=== PATIENT | female | born 1970 | race Caucasian/White ===

== ENCOUNTER 2016-07-04 08:22 | Day surgery (SDC) | payer BC, OTHER ==
[2016-07-04] MEDS ORDERED: FUROSEMIDE 20 MG TABLET (FP) PO SCH (09:00)
[2016-07-04 09:46] VITALS: BP 127/91; PULSE 80; TEMP 98.6
[2016-07-04 09:51] LABS: MCHC 28.1 g/dl (32.0-36.0); MEAN CELL VOLUME 56.8 fl (80-96); MEAN PLT VOLUME 9.3 fl (7.5-11.1); PLATELET COUNT 176 K/MM3 (134-434); RDW 21.6 % (11.6-15.6); WHITE BLOOD COUNT 7.8 K/mm3 (4.0-10.0)
[2016-07-04 10:13] LABS: MCH 15.9 pg (25.7-33.7)
[2016-07-04 13:14] LABS: ANISOCYTOSIS 3+; HYPOCHROMIA 3+; MICROCYTOSIS 4+; PLATELET ESTIMATE ADEQUATE (NORMAL); POLYCHROMASIA 1+; TEAR DROP CELLS 1+
[2016-07-04 20:52] LABS: MCHC 29.5 g/dl (32.0-36.0); MEAN CELL VOLUME 61.8 fl (80-96); MEAN PLT VOLUME 9.3 fl (7.5-11.1); PLATELET COUNT 206 K/MM3 (134-434); RDW 31.8 % (11.6-15.6); WHITE BLOOD COUNT 10.1 K/mm3 (4.0-10.0)
[2016-07-04 21:05] LABS: MCH 18.3 pg (25.7-33.7)
[2016-07-04 21:27] LABS: PLATELET ESTIMATE ADEQUATE (NORMAL)
== END 2016-07-04 21:40 | disposition home or self-care (01) ==
LOC: J7W 08:22 → JONCBLOOD 08:22
PROVIDERS: ATTEND Internal Medicine Hematology & Oncology
PROC: 30233N1 Transfusion of Nonautologous Red Blood Cells into Peripheral Vein, Percutaneous Approach (ICD-10-PCS; principal; 2016-07-04)
DX: D50.9 Iron deficiency anemia, unspecified (principal)
CPT/HCPCS: 36415; 36430; 85027; 86850; 86900; 86901; 86922; P9038; P9058

== ENCOUNTER 2016-11-16 07:22 | Day surgery (SDC) | payer BC, OTHER ==
[2016-11-16] MEDS ORDERED: IRON SUCROSE INJECTION 100 MG in SODIUM CHLORIDE 100 ML IVPB ONE (16:00)
[2016-11-16 17:13] VITALS: BP 129/76; PULSE 70; TEMP 98.2
== END 2016-11-16 17:10 | disposition home or self-care (01) ==
LOC: JONCNONCHE 07:22 → J7W 16:05 → JONCNONCHE 17:10
PROVIDERS: ATTEND Internal Medicine Hematology & Oncology
PROC: 3E033GC Introduction of Other Therapeutic Substance into Peripheral Vein, Percutaneous Approach (ICD-10-PCS; principal; 2016-11-16)
DX: D50.9 Iron deficiency anemia, unspecified (principal)
CPT/HCPCS: 96365; 96417; J1756

== ENCOUNTER 2016-12-06 07:30 | Day surgery (SDC) | payer BC, OTHER ==
[2016-12-06] MEDS ORDERED: IRON SUCROSE INJECTION 100 MG in SODIUM CHLORIDE 100 ML IVPB ONE (10:00)
[2016-12-06 16:24] VITALS: TEMP 98.7
[2016-12-06 17:03] VITALS: BP 106/73; PULSE 73
== END 2016-12-06 17:02 | disposition home or self-care (01) ==
LOC: JONCCHEMO 07:30 → J7W 16:06 → JONCCHEMO 17:02
PROVIDERS: ATTEND Internal Medicine Hematology & Oncology
PROC: 3E033GC Introduction of Other Therapeutic Substance into Peripheral Vein, Percutaneous Approach (ICD-10-PCS; principal; 2016-12-06)
DX: D50.9 Iron deficiency anemia, unspecified (principal)
CPT/HCPCS: 96365; J1756

== ENCOUNTER 2016-12-20 10:58 | Day surgery (SDC) | payer BC, OTHER ==
[2016-12-20] MEDS ORDERED: IRON SUCROSE INJECTION 100 MG in SODIUM CHLORIDE 100 ML IVPB ONE ×2 (11:30→16:15)
[2016-12-20 16:45] VITALS: TEMP 98.7
[2016-12-20 17:19] VITALS: BP 116/90; PULSE 70
== END 2016-12-20 17:21 | disposition home or self-care (01) ==
LOC: JONCNONCHE 10:58 → J7W 15:57 → JONCNONCHE 17:21
PROVIDERS: ATTEND Internal Medicine Hematology & Oncology
PROC: 3E033GC Introduction of Other Therapeutic Substance into Peripheral Vein, Percutaneous Approach (ICD-10-PCS; principal; 2016-12-20)
DX: D50.9 Iron deficiency anemia, unspecified (principal)
CPT/HCPCS: 96365; J1756

== ENCOUNTER 2017-01-31 07:20 | Day surgery (SDC) | payer BC, OTHER ==
[2017-01-31] MEDS ORDERED: IRON SUCROSE INJECTION 100 MG in SODIUM CHLORIDE 100 ML IVPB ONE (13:00)
[2017-01-31 18:13] VITALS: BP 119/73; PULSE 68; TEMP 98.6
== END 2017-01-31 18:14 | disposition home or self-care (01) ==
LOC: JONCNONCHE 07:20 → J7W 16:01 → JONCNONCHE 18:14
PROVIDERS: ATTEND Internal Medicine Hematology & Oncology
PROC: 3E033GC Introduction of Other Therapeutic Substance into Peripheral Vein, Percutaneous Approach (ICD-10-PCS; principal; 2017-01-31)
DX: D50.9 Iron deficiency anemia, unspecified (principal)
CPT/HCPCS: 96365; 96417; J1756

== ENCOUNTER 2017-02-07 07:48 | Day surgery (SDC) | payer BC, OTHER ==
[2017-02-07] MEDS ORDERED: IRON SUCROSE INJECTION 100 MG in SODIUM CHLORIDE 100 ML IVPB ONE (13:00)
[2017-02-07] MEDS ORDERED: IRON SUCROSE INJECTION 200 MG in SODIUM CHLORIDE 100 ML IVPB ONE (16:30)
[2017-02-07 16:36] VITALS: TEMP 97.5
[2017-02-07 17:17] VITALS: BP 113/77; PULSE 65
== END 2017-02-07 17:17 | disposition home or self-care (01) ==
LOC: JONCNONCHE 07:48 → J7W 16:35 → JONCNONCHE 17:17
PROVIDERS: ATTEND Internal Medicine Hematology & Oncology
PROC: 3E033GC Introduction of Other Therapeutic Substance into Peripheral Vein, Percutaneous Approach (ICD-10-PCS; principal; 2017-02-07)
DX: D50.9 Iron deficiency anemia, unspecified (principal); K90.9 Intestinal malabsorption, unspecified
CPT/HCPCS: 96365; 96417; J1756

== ENCOUNTER 2017-02-14 07:25 | Day surgery (SDC) | payer BC, OTHER ==
[2017-02-14] MEDS ORDERED: IRON SUCROSE INJECTION 200 MG in SODIUM CHLORIDE 100 ML IVPB ONE (13:00)
[2017-02-14 18:08] VITALS: TEMP 98
[2017-02-14 18:55] VITALS: BP 112/69; PULSE 68
== END 2017-02-14 19:41 | disposition home or self-care (01) ==
LOC: JONCNONCHE 07:25 → J7W 17:15 → JONCNONCHE 19:41
PROVIDERS: ATTEND Internal Medicine Hematology & Oncology
PROC: 3E033GC Introduction of Other Therapeutic Substance into Peripheral Vein, Percutaneous Approach (ICD-10-PCS; principal; 2017-02-14)
DX: D50.9 Iron deficiency anemia, unspecified (principal)
CPT/HCPCS: 96365; 96417; J1756

== ENCOUNTER 2017-03-07 07:26 | Day surgery (SDC) | payer BC, OTHER ==
[2017-03-07] MEDS ORDERED: IRON SUCROSE INJECTION 200 MG in SODIUM CHLORIDE 100 ML IVPB ONE (10:00)
[2017-03-07 17:12] VITALS: BP 104/72; PULSE 61; TEMP 98.1
== END 2017-03-07 16:55 | disposition home or self-care (01) ==
LOC: JONCNONCHE 07:26 → JONCCHEMO 07:26 → J7W 16:02 → JONCNONCHE 16:55
PROVIDERS: ATTEND Internal Medicine Hematology & Oncology
PROC: 3E033GC Introduction of Other Therapeutic Substance into Peripheral Vein, Percutaneous Approach (ICD-10-PCS; principal; 2017-03-07)
DX: D50.9 Iron deficiency anemia, unspecified (principal)
CPT/HCPCS: 96365; J1756

== ENCOUNTER 2017-03-21 07:43 | Day surgery (SDC) | payer BC, OTHER ==
[2017-03-21] MEDS ORDERED: IRON SUCROSE INJECTION 200 MG in SODIUM CHLORIDE 100 ML IVPB ONE (14:00)
[2017-03-21 19:13] VITALS: BP 113/73; PULSE 81; TEMP 97.5
== END 2017-03-21 18:30 | disposition home or self-care (01) ==
LOC: JONCNONCHE 07:43 → J7W 17:00 → JONCNONCHE 18:30
PROVIDERS: ATTEND Internal Medicine Hematology & Oncology
PROC: 3E033GC Introduction of Other Therapeutic Substance into Peripheral Vein, Percutaneous Approach (ICD-10-PCS; principal; 2017-03-21)
DX: D50.9 Iron deficiency anemia, unspecified (principal); K90.9 Intestinal malabsorption, unspecified
CPT/HCPCS: 96365; J1756

== ENCOUNTER 2017-04-11 07:08 | Day surgery (SDC) | payer BC, OTHER ==
[2017-04-11] MEDS ORDERED: IRON SUCROSE INJECTION 200 MG in SODIUM CHLORIDE 100 ML IVPB ONE (13:00)
[2017-04-11 18:21] VITALS: TEMP 97.6
[2017-04-11 18:23] VITALS: BP 103/69; PULSE 71
== END 2017-04-11 18:23 | disposition home or self-care (01) ==
LOC: JONCNONCHE 07:08 → J7W 17:22 → JONCNONCHE 18:23
PROVIDERS: ATTEND Internal Medicine Hematology & Oncology
PROC: 3E033GC Introduction of Other Therapeutic Substance into Peripheral Vein, Percutaneous Approach (ICD-10-PCS; principal; 2017-04-11)
DX: D50.9 Iron deficiency anemia, unspecified (principal); K90.9 Intestinal malabsorption, unspecified
CPT/HCPCS: 96365; J1756

== ENCOUNTER 2017-04-25 07:25 | Day surgery (SDC) | payer BC, OTHER ==
[2017-04-25] MEDS ORDERED: IRON SUCROSE INJECTION 200 MG in SODIUM CHLORIDE 100 ML IVPB ONE (10:00)
[2017-04-25 18:37] VITALS: BP 112/69; PULSE 67; TEMP 98
== END 2017-04-25 18:00 | disposition home or self-care (01) ==
LOC: JONCNONCHE 07:25 → J7W 16:55 → JONCNONCHE 18:00
PROVIDERS: ATTEND Internal Medicine Hematology & Oncology
PROC: 3E033GC Introduction of Other Therapeutic Substance into Peripheral Vein, Percutaneous Approach (ICD-10-PCS; principal; 2017-04-25)
DX: D50.9 Iron deficiency anemia, unspecified (principal); K90.9 Intestinal malabsorption, unspecified
CPT/HCPCS: 96365; J1756

== ENCOUNTER 2017-06-19 02:26 | Emergency (ER) | payer BC, OTHER ==
--- NOTE | 2017-06-19 02:35 | PDOC ---
History of Present Illness - General History Source: Patient Exam Limitations: No Limitations - History of Present Illness Initial Comments: The patient is a 47 year old female with a significant past medical history of anemia who presents to the emergency department complaining of dorsal right ear at mastoid pain since . The patient reports she has been having episodes of vollying spasms behind the right ear since after work. She describes the pain as constant which radiates to the back of the head, and is tear causing. She reports the pain occurs every 3 seconds, like pinching. She states she has not been getting enough sleep. The patient admits to taking 6 Motrin with mild alleviation in pain. Of note, her last liquid iron transfusion was at the end of April. She denies any history of migraines. The patient denies chest pain, shortness of breath, headache, and dizziness. Denies fevers, chills, nausea, vomiting, diarrhea, and constipation. Denies dysuria, frequency, urgency, and hematuria. Allergies: NKA Past surgical history: Patient denies. Social history: No reported cigarette, alcohol, or drug use. PCP: Dr. Georgina Alexandre ([phone]) <Paige Mcmanus - Last Filed: 06/19/17 04:49> <Tatum Sanchez - Last Filed: 06/19/17 06:31> - General Stated Complaint: HEAD PAIN Time Seen by Provider: 06/19/17 02:33 Past History <Paige Mcmanus - Last Filed: 06/19/17 04:49> - Past Medical History Anemia: Yes Asthma: No Cancer: No Cardiac Disorders: No CVA: No COPD: No CHF: No Dementia: No Diabetes: No GI Disorders: No Disorders: No HTN: No Hypercholesterolemia: No Liver Disease: No Seizures: No Thyroid Disease: No - Surgical History Abdominal Surgery: No Appendectomy: No Cardiac Surgery: No Cholecystectomy: No Lung Surgery: No Neurologic Surgery: No Orthopedic Surgery: Yes (LT TIBIALORIF 3YRS AGO & 2 SCREWS & DAVI PRESENT. RT FEET SURGERY 20 YRS AGO) - Immunization History Immunization Up to Date: Yes - Suicide/Smoking/Psychosocial Hx Smoking History: Never smoked Have you smoked in the past 12 months: No Number of Cigarettes Smoked Daily: 1 Cigars Per Day: 0 'Breaking Loose' booklet given: 01/21/13 Hx Alcohol Use: No Drug/Substance Use Hx: No Substance Use Type: None Hx Substance Use Treatment: No <Tatum Sanchez - Last Filed: 06/19/17 06:31> - Past Medical History Allergies/Adverse Reactions: Allergies Allergy/AdvReac Type Severity Reaction Status Date / Time No Known Allergies Allergy Verified 06/19/17 02:49 Home Medications: Ambulatory Orders Naproxen Sodium [Aleve] 220 mg PO PRN PRN 04/16/14 Oxycodone HCl/Acetaminophen [Percocet 5/325 -] 1 - 2 tab PO Q6H PRN #20 tab Indomethacin [Indocin -] 50 mg PO BID #60 capsule 06/19/17 Melatonin/Pyridoxine HCl (B6) [Melatonin 3 mg Tablet] 1 each PO TID #60 tablet 06/19/17 Review of Systems - Review of Systems Comments:: GENERAL/CONSTITUTIONAL: No fever or chills. No weakness. HEAD, EYES, EARS, NOSE AND THROAT: (+)Head pain. No change in vision. No ear pain or discharge. No sore throat. CARDIOVASCULAR: No chest pain or shortness of breath. RESPIRATORY: No cough, wheezing, or hemoptysis. GASTROINTESTINAL: No nausea, vomiting, diarrhea or constipation. GENITOURINARY: No dysuria, frequency, or change in urination. MUSCULOSKELETAL: No joint or muscle swelling or pain. No neck or back pain. SKIN: No rash NEUROLOGIC: (+)Headache. No vertigo, loss of consciousness, or change in strength/sensation. ENDOCRINE: No increased thirst. No abnormal weight change. HEMATOLOGIC/LYMPHATIC: No anemia, easy bleeding, or history of blood clots. ALLERGIC/IMMUNOLOGIC: No hives or skin allergy. <Paige Mcmanus - Last Filed: 06/19/17 04:49> *Physical Exam - Vital Signs Last Vital Signs Temp Pulse Resp BP Pulse Ox 98.4 F 69 18 139/86 99 06/19/17 02:46 06/19/17 02:46 06/19/17 02:46 06/19/17 02:46 06/19/17 02:46 - Physical Exam Comments: GENERAL: Awake, alert, and fully oriented, in no acute distress HEAD: No signs of trauma EYES: PERRLA, EOMI, sclera anicteric, conjunctiva clear ENT: Auricles normal inspection, hearing grossly normal, nares patent, oropharynx clear without exudates. Moist mucosa NECK: Normal ROM, supple, no lymphadenopathy, JVD, or masses LUNGS: Breath sounds equal, clear to auscultation bilaterally. No wheezes, and no crackles HEART: Regular rate and rhythm, normal S1 and S2, no murmurs, rubs or gallops ABDOMEN: Soft, nontender, normoactive bowel sounds. No guarding, no rebound. No masses EXTREMITIES: Normal range of motion, no edema. No clubbing or cyanosis. No cords, erythema, or tenderness NEUROLOGICAL: Cranial nerves II through XII grossly intact. Normal speech, normal gait SKIN: Warm, Dry, normal turgor, no rashes or lesions noted. <Paige Mcmanus - Last Filed: 06/19/17 04:49> ED Treatment Course - LABORATORY CBC & Chemistry Diagram: 06/19/17 03:00 06/19/17 03:00 - ADDITIONAL ORDERS Additional order review: Laboratory Results 06/19/17 03:00 Sodium 141 Potassium 4.0 Chloride 108 H Carbon Dioxide 28 Anion Gap 5 L BUN 12 Creatinine 0.6 Creat Clearance w eGFR > 60 Random Glucose 99 Calcium 8.7 Total Bilirubin 0.3 AST 12 L ALT 28 Alkaline Phosphatase 76 Total Protein 7.4 Albumin 3.7 06/19/17 03:00 RBC 4.53 MCV 87.3 MCHC 34.0 RDW 14.9 D MPV 10.3 D Neutrophils % 65.8 Lymphocytes % 26.2 Monocytes % 5.4 Eosinophils % 2.2 Basophils % 0.4 <Paige Mcmanus - Last Filed: 06/19/17 04:49> - LABORATORY CBC & Chemistry Diagram: 06/19/17 03:00 06/19/17 03:00 <Tatum Sanchez - Last Filed: 06/19/17 06:31> Medical Decision Making - Medical Decision Making 06/19/17 04:07 Patient Name: DREW ALEXANDRE THIS IS A PRELIMINARY REPORT FROM [facility] DATE OF SERVICE: 2017-06-19 02:39:02 IMAGES: 237 EXAM: HEAD CT WITHOUT CONTRAST HISTORY: Right mastoid pain COMPARISON: None. FINDINGS: The ventricular system is midline and nondilated. The sulcal pattern is normal for the patient's age. There is no bleed, mass, extra-axial fluid collection or mass effect. No skull fracture or skull lesion is identified. The visualized paranasal sinuses and mastoid air cells are clear. IMPRESSION: Normal exam. 06/19/17 06:29 Pt comes with lancinating volleys of mastoid pain. This is a typical "ice-pick STAPLES" CT head normal; labs normal. Exam normal. Pt will go home with indocin and melatonin and vitB6 combo meds. Pt advised to rest more. Follow with neurology as needed. <Tatum Sanchez - Last Filed: 06/19/17 06:31> *DC/Admit/Observation/Transfer - Attestations Scribe Attestion: Documentation prepared by Paige Mcmanus, acting as medical transcription editor for Tatum Sanchez MD. <Paige Mcmanus - Last Filed: 06/19/17 04:49> - Discharge Dispostion Admit: No <Tatum Sanchez - Last Filed: 06/19/17 06:31> Diagnosis at time of Disposition: Headache , short unilat neuralgiform, w/conjunctival injection/tearing - Discharge Dispostion Disposition: HOME Condition at time of disposition: Fair - Prescriptions Prescriptions: Indomethacin [Indocin -] 50 mg PO BID #60 capsule Melatonin/Pyridoxine HCl (B6) [Melatonin 3 mg Tablet] 1 each PO TID #60 tablet - Referrals Referrals: Georgina Alexandre MD [Primary Care Provider] - Cole Patel DO [Staff Physician] - - Patient Instructions Printed Discharge Instructions: DI for Headache, DI for Neuralgia, Occipital Neuralgia - Post Discharge Activity
[2017-06-19 02:55] VITALS: BP 139/86; PULSE 69; TEMP 98.4; BMI 26.7
[2017-06-19 03:32] LABS: BASO % 0.4 % (0-2.0); EOS % 2.2 % (0-4.5); HEMATOCRIT 39.5 % (32.4-45.2); HEMOGLOBIN 13.4 GM/dL (10.7-15.3); LYMPH % 26.2 % (8-40); MCH 29.7 pg (25.7-33.7); MEAN CELL VOLUME 87.3 fl (80-96); MEAN PLT VOLUME 10.3 fl (7.5-11.1); MONO % 5.4 % (3.8-10.2); NEUT % 65.8 % (42.8-82.8); PLATELET COUNT 214 K/MM3 (134-434); RBC 4.53 M/mm3 (3.60-5.2); RDW 14.9 % (11.6-15.6); WHITE BLOOD COUNT 8.3 K/mm3 (4.0-10.0)
[2017-06-19 03:41] LABS: ALBUMIN 3.7 g/dl (3.4-5.0); ANION GAP 5 (8-16); BILIRUBIN,TOTAL 0.3 mg/dL (0.2-1.0); BLOOD UREA NITROGEN 12 mg/dL (7-18); CALCIUM 8.7 mg/dL (8.5-10.1); CHLORIDE 108 mmol/L (98-107); CO2 28 mmol/L (21-32); CREATININE 0.6 mg/dL (0.55-1.02); GLUCOSE,RANDOM 99 mg/dL (74-106); SGOT/AST 12 U/L (15-37); SGPT/ALT 28 U/L (12-78); SODIUM 141 mmol/L (136-145); TOT PROT 7.4 g/dl (6.4-8.2)
[2017-06-19 03:42] LABS: ALK PHOS 76 U/L (45-117)
[2017-06-20 08:09] LABS: SERUM IRON SATURATION 23 % (15-55); TOTAL IRON BINDING CAPACITY 305 ug/dL (250-450); UIBC 235 ug/dL (131-425)
== END 2017-06-19 05:10 | disposition home or self-care (01) ==
LOC: JER 02:26
DX: G44.059 Short lasting unilateral neuralgiform headache with conjunctival injection and tearing (SUNCT), not intractable (principal)
CPT/HCPCS: 36415; 70450-TC; 80053; 83540; 83550; 85025; 85651; 99281-25

== ENCOUNTER 2018-01-28 01:56 | Emergency (ER) | payer OTHER, BC ==
[2018-01-28 02:17] VITALS: BP 111/66; PULSE 76; TEMP 97.6; BMI 25.0
[2018-01-28 03:25] LABS: BASO % 0.9 % (0-2.0); EOS % 2.1 % (0-4.5); HEMATOCRIT 37.3 % (32.4-45.2); HEMOGLOBIN 12.9 GM/dL (10.7-15.3); LYMPH % 34.2 % (8-40); MCH 29.4 pg (25.7-33.7); MCHC 34.5 g/dl (32.0-36.0); MEAN CELL VOLUME 85.1 fl (80-96); MEAN PLT VOLUME 9.7 fl (7.5-11.1); MONO % 5.9 % (3.8-10.2); NEUT % 56.9 % (42.8-82.8); PLATELET COUNT 239 K/MM3 (134-434); RBC 4.38 M/mm3 (3.60-5.2); RDW 14.6 % (11.6-15.6); WHITE BLOOD COUNT 7.2 K/mm3 (4.0-10.0)
[2018-01-28 03:46] LABS: ALBUMIN 3.7 g/dl (3.4-5.0); ALK PHOS 66 U/L (45-117); ANION GAP 5 MMOL/L (8-16); BILIRUBIN,TOTAL 0.3 mg/dL (0.2-1); BLOOD UREA NITROGEN 15 mg/dL (7-18); CALCIUM 8.8 mg/dL (8.5-10.1); CHLORIDE 106 mmol/L (98-107); CO2 28 mmol/L (21-32); CREATININE 0.7 mg/dL (0.55-1.3); GLUCOSE,RANDOM 88 mg/dL (74-106); POTASSIUM 4.2 mmol/L (3.5-5.1); SGOT/AST 12 U/L (15-37); SGPT/ALT 18 U/L (13-61); SODIUM 139 mmol/L (136-145); TOT PROT 7.4 g/dl (6.4-8.2)
--- NOTE | 2018-01-28 07:26 | PDOC ---
History of Present Illness - General Chief Complaint: Injury Stated Complaint: FALL,PAIN Past History - Past Medical History Allergies/Adverse Reactions: Allergies Allergy/AdvReac Type Severity Reaction Status Date / Time No Known Allergies Allergy Verified 01/28/18 01:59 Home Medications: Ambulatory Orders Naproxen Sodium [Aleve] 220 mg PO PRN PRN 04/16/14 Oxycodone HCl/Acetaminophen [Percocet 5/325 -] 1 - 2 tab PO Q6H PRN #20 tab Indomethacin [Indocin -] 50 mg PO BID #60 capsule 06/19/17 Melatonin/Pyridoxine HCl (B6) [Melatonin 3 mg Tablet] 1 each PO TID #60 tablet 06/19/17 Methocarbamol [Robaxin -] 500 mg PO TID #30 tablet 01/28/18 Anemia: Yes Asthma: No Cancer: No Cardiac Disorders: No CVA: No COPD: No CHF: No Dementia: No Diabetes: No GI Disorders: No Disorders: No HTN: No Hypercholesterolemia: No Liver Disease: No Seizures: No Thyroid Disease: No - Surgical History Abdominal Surgery: No Appendectomy: No Cardiac Surgery: No Cholecystectomy: No Lung Surgery: No Neurologic Surgery: No Orthopedic Surgery: Yes (LT TIBIALORIF 3YRS AGO & 2 SCREWS & DAVI PRESENT. RT FEET SURGERY 20 YRS AGO) - Immunization History Immunization Up to Date: Yes - Suicide/Smoking/Psychosocial Hx Smoking History: Never smoked Have you smoked in the past 12 months: No Number of Cigarettes Smoked Daily: 1 Cigars Per Day: 0 Information on smoking cessation initiated: No 'Breaking Loose' booklet given: 01/21/13 Hx Alcohol Use: No Drug/Substance Use Hx: No Substance Use Type: None Hx Substance Use Treatment: No *Physical Exam - Vital Signs Last Vital Signs Temp Pulse Resp BP Pulse Ox 97.6 F 76 20 111/66 98 01/28/18 02:16 01/28/18 02:16 01/28/18 02:16 01/28/18 02:16 01/28/18 02:16 Moderate Sedation - Procedure Monitoring Vital Signs: Procedure Monitoring Vital Signs Temperature 97.6 F 01/28/18 02:16 Pulse Rate 76 01/28/18 02:16 Respiratory Rate 20 01/28/18 02:16 Blood Pressure 111/66 01/28/18 02:16 O2 Sat by Pulse Oximetry (%) 98 12/01/18 02:16 ED Treatment Course - LABORATORY CBC & Chemistry Diagram: 01/28/18 03:15 01/28/18 03:15 - ADDITIONAL ORDERS Additional order review: Laboratory Results 01/28/18 03:15 Sodium 139 Potassium 4.2 Chloride 106 Carbon Dioxide 28 Anion Gap 5 L BUN 15 Creatinine 0.7 Creat Clearance w eGFR > 60 Random Glucose 88 Calcium 8.8 Total Bilirubin 0.3 AST 12 L ALT 18 Alkaline Phosphatase 66 Total Protein 7.4 Albumin 3.7 01/28/18 03:15 RBC 4.38 MCV 85.1 MCHC 34.5 RDW 14.6 MPV 9.7 Neutrophils % 56.9 Lymphocytes % 34.2 D Monocytes % 5.9 Eosinophils % 2.1 Basophils % 0.9 - RADIOLOGY Radiology Studies Ordered: Category Date Time Status KNEE 2 POS-LEFT [RAD] Stat Radiology 01/28/18 02:45 Taken SHOULDER-LEFT [RAD] Stat Radiology 01/28/18 02:45 Completed *DC/Admit/Observation/Transfer Diagnosis at time of Disposition: Work related injury, Contusion of left shoulder, initial encounter, Knee contusion, Contusion, hip, Left ankle injury - Discharge Dispostion Disposition: HOME Condition at time of disposition: Stable Decision to Admit order: No - Prescriptions Prescriptions: Methocarbamol [Robaxin -] 500 mg PO TID #30 tablet - Referrals Referrals: Georgina Hill MD [Primary Care Provider] - Roderick Christensen MD [Staff Physician] - - Patient Instructions Printed Discharge Instructions: DI for Shoulder Sprain, Frozen Shoulder, Stretching Exercises - Post Discharge Activity Forms/Work/School Notes: Back to Work
[2018-01-28] MEDS ORDERED: IBUPROFEN 600 MG TABLET (FP) PO ONE ×2 (07:44→07:56)
[2018-01-28] MEDS ORDERED: METHOCARBAMOL 500 MG TABLET PO ONE (07:44)
[2018-01-28] MEDS ORDERED: METHOCARBAMOL 500 MG TABLET ONE (07:56)
[2018-01-29 08:09] LABS: SERUM IRON SATURATION 14 % (15-55); TOTAL IRON BINDING CAPACITY 302 ug/dL (250-450); UIBC 261 ug/dL (131-425)
== END 2018-01-28 08:01 | disposition home or self-care (01) ==
LOC: JER 01:56
DX: S40.012A Contusion of left shoulder, initial encounter (principal); S80.02XA Contusion of left knee, initial encounter; S70.02XA Contusion of left hip, initial encounter; S90.02XA Contusion of left ankle, initial encounter; W18.39XA Other fall on same level, initial encounter; Y93.89 Activity, other specified; Y92.89 Other specified places as the place of occurrence of the external cause; Y99.0 Civilian activity done for income or pay
CPT/HCPCS: 36415; 73030-TC-LT-FY; 73560-TC-LT-FY; 80053; 83540; 83550; 85025; 99283-25

== ENCOUNTER 2020-04-15 18:33 | Emergency (ER) | payer OTHER, BC ==
[2020-04-15 18:39] VITALS: BP 130/80; PULSE 80; TEMP 98; BMI 30.7
== END 2020-04-15 18:40 | disposition home or self-care (01) ==
LOC: JER 18:33
DX: Z11.52 Encounter for screening for COVID-19 (principal)
CPT/HCPCS: 99284-25; C9803; U0003